=== PATIENT | female | born 1965 | race Caucasian/White ===

== ENCOUNTER 2025-08-03 12:12 | Emergency (ER) | payer OTHER ==
[2025-08-03] MEDS ORDERED: Acetaminophen 500 MG TAB ONE (14:20)
[2025-08-03 14:40] LABS: #Basophils Less than 0.03 10x3/uL (0.0-0.2); #Eosinophils 0.18 10x3/uL (0.0-0.7); #Monocytes 0.63 10x3/uL (0.11-0.59); #Neutrophils 3.41 10x3/uL (1.40-6.50); %Basophils 0.3 % (0.0-1.0); %Eosinophils 2.9 % (0.0-10.0); %Lymphocytes 30.7 % (21.0-51.0); %Monocytes 10.2 % (0.0-10.0); %Neutrophils 55.4 % (42.0-75.0); Hematocrit 42.3 % (36.0-47.0); Hemoglobin 14.6 g/dL (12.0-16.0); Mean Corpuscular Hemoglobin 30.0 pg (27.0-31.0); Mean Corpuscular Volume 86.9 fL (78.0-98.0); Platelet Count 213 10x3/uL (130-400); Red Blood Cell (RBC) Count 4.87 mill/uL (4.20-5.40); White Blood Cell (WBC) Count 6.16 10x3/uL (4.8-10.8)
[2025-08-03 14:55] LABS: ALT (SGPT) 21 U/L (Less than 34); AST (SGOT) 29 U/L (11-34); Albumin 3.7 g/dL (3.1-4.5); Alkaline Phosphatase 93 U/L (40-110); Anion Gap 15 mmol/L (10-20); BUN (Urea Nitrogen) 17 mg/dL (9.8-20.1); Bilirubin, Total 0.5 mg/dL (0.3-1.2); Calc. Creatinine Clearance 0 mL/min (70-130); Calcium 8.8 mg/dL (7.8-10.44); Carbon Dioxide 24 mmol/L (22-29); Chloride 105 mmol/L (98-107); Globulin 3.0 g/dL (2.4-3.5); Glucose 279 mg/dL (70-105); Potassium 3.7 mmol/L (3.5-5.1); Sodium 140 mmol/L (136-145)
[2025-08-03 16:37] LABS: Bacteria/HPF None Seen HPF (None Seen); CAUTI Indications for Culture Dysuria,urgency,freq; Glucose, Urine (Dipstick) Greater than 1000 mg/dL (Negative); Leukocyte 75 Leu/uL (Negative); Protein, Urine (Dipstick) Negative (Neg-Trace); RBC/HPF None Seen HPF (0-3); Specific Gravity, Urine 1.030 (1.002-1.036); WBC/HPF None Seen HPF (0-3)
[2025-08-03 16:44] LABS: Urine Culture Reflex No No
== END 2025-08-03 17:17 | disposition home or self-care (01) ==
LOC: ERS 12:12
DX: R55 Syncope and collapse (principal); B34.9 Viral infection, unspecified; I10 Essential (primary) hypertension; E11.9 Type 2 diabetes mellitus without complications; F17.290 Nicotine dependence, other tobacco product, uncomplicated; Z79.899 Other long term (current) drug therapy
CPT/HCPCS: 36415; 71045; 80053; 81001; 83605; 84484; 85025; 87040; 87077; 87086; 87428; 93005; 96360; 96361